=== PATIENT | male | born 1980 | race Caucasian/White ===

== ENCOUNTER → 2018-07-16 | Outpatient (CLI) | payer BC ==
--- NOTE | 2018-07-16 11:42 | Diagnostic Imaging Report ---
INDICATION: Left varicocele and infertility. FINDINGS: The right testicle measures 5.2 x 2.4 x 3.2 cm and the left testicle measures 4.8 x 2.3 x 2.7 cm. Both testes demonstrate homogeneous echotexture. No discrete testicular mass is seen. There is blood flow bilaterally. Epididymides are unremarkable. No hydrocele or varicocele is detected. IMPRESSION: Unremarkable scrotal ultrasound. Dictated by: Dictated on workstation # [id number]
== END ==
LOC: RAD 08:55
PROVIDERS: ATTEND Urology
DX: I86.1 Scrotal varices (principal); N46.9 Male infertility, unspecified
CPT/HCPCS: 76870